=== PATIENT | female | born 1980 | race Caucasian/White ===

== ENCOUNTER 2017-05-10 23:17 | Observation (INO) | payer MEDICAID ==
[~2017-05-10] VITALS: Ht 167.6 cm; Wt 54.5 kg
[2017-05-10 23:19] VITALS: BP 128/93; PULSE 98; RESP 16; TEMP 97.8; O2SAT 96
--- NOTE | 2017-05-11 00:38 | RADRPT ---
EXAM DATE/TIME: 05/11/2017 00:16 [facility] COMPARISON: No previous studies available for comparison. INDICATIONS : Pt fell getting out of bed yesterday morning. Pain to right hip. Pt states has hip dysplagia and has for entire life. MEDICAL HISTORY : None. SURGICAL HISTORY : Appendectomy. Right hip surgery ENCOUNTER: Initial ACUITY: 2 days PAIN SCORE: 9/10 LOCATION: Right pelvis Right hip FINDINGS: Examination of the right hip was performed with AP Pelvis. No fracture or dislocation observed. Dyspl dolores of the right hip is seen with secondary osteoarthritis. No femoral head flattening or subchondra l geode formation. Pelvis is intact. A surgical clip overlies the right pelvis. Bowel gas pattern is unremarkable. CONCLUSION: Dysplastic right hip. No acute abnormality. Chandu Fleming Jr., MD on May 11, 2017 at 0:35 Board Certified Radiologist. This report was verified electronically.
--- NOTE | 2017-05-11 00:58 | PD ---
HPI Chief Complaint: Pain: Acute or Chronic Time Seen by Provider: 23:37 Travel History International Travel<30 days: No Contact w/Intl Traveler<30days: No Traveled to known affect area: No History of Present Illness HPI Patient is a 37-year-old female presenting to the emergency department for evaluation of right hip pain. Patient states the pain is chronic in nature and she is scheduled for surgery in a few weeks. Patient is having a total hip replacement, Dr. Mirza is her orthopedic surgeon. Patient is presenting today because she fell out of bed this morning, she states that this happened at 4 a.m. and she was on the floor until 11 AM. Patient went to her primary doctor today who told her to call her orthopedic surgeon which she did and he called in Tylenol 3. Patient states that she does not like to take medications home she likes taking herbal supplements and vitamins. She presents because the pain has been unbearable but states she has not taken anything to alleviate the pain even though her orthopedic surgeon called and pain medication for her per her report. PFSH Past Medical History Arthritis: Yes Diminished Hearing: No Musculoskeletal: Yes (R hip) Tetanus Vaccination: < 5 Years Influenza Vaccination: No ?: Not LMP: 05/10/17 : 2 Para: 2 Past Surgical History Appendectomy: Yes Social History Alcohol Use: No Tobacco Use: No Substance Use: No Allergies-Medications (Allergen,Severity, Reaction): Coded Allergies: No Known Allergies (Unverified , 05/10/17) Reported Meds & Prescriptions Reported Meds & Active Scripts Active No Active Prescriptions or Reported Medications Review of Systems Except as stated in HPI: all other systems reviewed are Neg Musculoskeletal: Positive: Myalgias, Arthralgias, Limited ROM, Pain Neurologic: Positive: Syncope Physical Exam Narrative GENERAL: Thin, well-developed, alert female. Resting comfortably in no acute distress. SKIN: Warm and dry. HEAD: Atraumatic. Normocephalic. EYES: Pupils equal and round. No scleral icterus. No injection or drainage. ENT: No nasal bleeding or discharge. Mucous membranes pink and moist. NECK: Trachea midline. No JVD. CARDIOVASCULAR: Regular rate and rhythm. RESPIRATORY: No accessory muscle use. Clear to auscultation. Breath sounds equal bilaterally. GASTROINTESTINAL: Abdomen soft, non-tender, nondistended. Hepatic and splenic margins not palpable. MUSCULOSKELETAL: Extremities without clubbing, cyanosis, or edema. No obvious deformities. No leg length discrepancy noted. Pain with rotation of right leg. No tenderness to palpation over right hip. No spinal tenderness or step- off noted. NEUROLOGICAL: Awake and alert. No obvious cranial nerve deficits. Motor grossly within normal limits. Five out of 5 muscle strength in the arms and legs. Normal speech. PSYCHIATRIC: Appropriate mood and affect; insight and judgment normal. Data Data Last Documented VS Vital Signs Date Time Temp Pulse Resp B/P (MAP) Pulse Ox O2 Delivery O2 Flow Rate FiO2 05/11/17 02:44 16 05/11/17 02:38 75 118/72 (87) 98 Room Air 05/10/17 23:19 97.8 Orders Orders Hip, Uni(Ap&Lat) W Ap Pelvis (05/10/17 ) Ct Brain W/O Iv Contrast(Rout) (05/11/17 ) Ct Lumb Spine W/O Contrast (05/11/17 ) Ct Hip W/O Contrast (05/11/17 ) Ct Abd/Pel W Iv Contrast(Rout) (05/11/17 ) Ed Urine Pregnancytest Poc (05/11/17 00:58) Complete Blood Count With Diff (05/11/17 00:58) Comprehensive Metabolic Panel (05/11/17 00:58) Creatine Kinase (Cpk) (05/11/17 00:58) Iv Access Insert/Monitor (05/11/17 00:58) Ketorolac Inj (Toradol Inj) (05/11/17 01:00) Morphine Inj (Morphine Inj) (05/11/17 02:30) Ondansetron Inj (Zofran Inj) (05/11/17 02:30) Iohexol 350 Inj (Omnipaque 350 Inj) (05/11/17 03:15) Admit Order (Ed Use Only) (05/11/17 05:05) Labs Laboratory Tests Test 05/11/17 01:15 White Blood Count 10.5 TH/MM3 Red Blood Count 4.49 MIL/MM3 Hemoglobin 14.1 GM/DL Hematocrit 40.6 % Mean Corpuscular Volume 90.5 FL Mean Corpuscular Hemoglobin 31.3 PG Mean Corpuscular Hemoglobin Concent 34.6 % Red Cell Distribution Width 12.6 % Platelet Count 233 TH/MM3 Mean Platelet Volume 8.3 FL Neutrophils (%) (Auto) 78.3 % Lymphocytes (%) (Auto) 16.5 % Monocytes (%) (Auto) 4.1 % Eosinophils (%) (Auto) 0.6 % Basophils (%) (Auto) 0.5 % Neutrophils # (Auto) 8.2 TH/MM3 Lymphocytes # (Auto) 1.7 TH/MM3 Monocytes # (Auto) 0.4 TH/MM3 Eosinophils # (Auto) 0.1 TH/MM3 Basophils # (Auto) 0.1 TH/MM3 CBC Comment DIFF FINAL Differential Comment Blood Urea Nitrogen 7 MG/DL Creatinine 0.69 MG/DL Random Glucose 112 MG/DL Total Protein 8.1 GM/DL Albumin 4.3 GM/DL Calcium Level 8.9 MG/DL Alkaline Phosphatase 64 U/L Aspartate Amino Transf (AST/SGOT) 12 U/L Alanine Aminotransferase (ALT/SGPT) 17 U/L Total Bilirubin 0.4 MG/DL Sodium Level 141 MEQ/L Potassium Level 3.5 MEQ/L Chloride Level 107 MEQ/L Carbon Dioxide Level 27.8 MEQ/L Anion Gap 6 MEQ/L Estimat Glomerular Filtration Rate 95 ML/MIN Total Creatine Kinase 79 U/L [facility] Medical Decision Making Medical Screen Exam Complete: Yes Emergency Medical Condition: Yes Medical Record Reviewed: Yes Interpretation(s) Last Impressions Lumbar Spine CT 05/11/17 Signed Impressions: Service Date/Time: Thursday, May 11, 2017 02:54 - CONCLUSION: Normal examination. Chandu Fleming Jr., MD Lower Extremity CT 05/11/17 Signed Impressions: Service Date/Time: Thursday, May 11, 2017 02:54 - CONCLUSION: 1. Dysplasia and secondary osteoarthritis involving the right hip. 2. No acute abnormality. Chandu Fleming Jr., MD Head CT 05/11/17 Signed Impressions: Service Date/Time: Thursday, May 11, 2017 02:51 - CONCLUSION: Normal examination. Chandu Fleming Jr., MD Abdomen/Pelvis CT 05/11/17 Signed Impressions: Service Date/Time: Thursday, May 11, 2017 02:54 - CONCLUSION: 1. No acute abnormality. 2. 1 cm nonspecific low density lesion involving the right lobe of the liver. Presumably this relates to a cyst or hemangioma. 3. Dysplasia of the right hip. 4. 2 mm nonobstructing left renal stone. Chandu Fleming Jr., MD Hip and Pelvis X-Ray 05/10/17 0000 Signed Impressions: Service Date/Time: Thursday, May 11, 2017 00:16 - CONCLUSION: Dysplastic right hip. No acute abnormality. Chandu Fleming Jr., MD Vital Signs Date Time Temp Pulse Resp B/P (MAP) Pulse Ox O2 Delivery O2 Flow Rate FiO2 05/11/17 02:44 16 05/11/17 02:38 75 16 118/72 (87) 98 Room Air 05/11/17 02:30 16 05/10/17 23:19 97.8 98 16 128/93 (105) 96 Room Air Laboratory Tests Test 05/11/17 01:15 White Blood Count 10.5 TH/MM3 Red Blood Count 4.49 MIL/MM3 Hemoglobin 14.1 GM/DL Hematocrit 40.6 % Mean Corpuscular Volume 90.5 FL Mean Corpuscular Hemoglobin 31.3 PG Mean Corpuscular Hemoglobin Concent 34.6 % Red Cell Distribution Width 12.6 % Platelet Count 233 TH/MM3 Mean Platelet Volume 8.3 FL Neutrophils (%) (Auto) 78.3 % Lymphocytes (%) (Auto) 16.5 % Monocytes (%) (Auto) 4.1 % Eosinophils (%) (Auto) 0.6 % Basophils (%) (Auto) 0.5 % Neutrophils # (Auto) 8.2 TH/MM3 Lymphocytes # (Auto) 1.7 TH/MM3 Monocytes # (Auto) 0.4 TH/MM3 Eosinophils # (Auto) 0.1 TH/MM3 Basophils # (Auto) 0.1 TH/MM3 CBC Comment DIFF FINAL Differential Comment Blood Urea Nitrogen 7 MG/DL Creatinine 0.69 MG/DL Random Glucose 112 MG/DL Total Protein 8.1 GM/DL Albumin 4.3 GM/DL Calcium Level 8.9 MG/DL Alkaline Phosphatase 64 U/L Aspartate Amino Transf (AST/SGOT) 12 U/L Alanine Aminotransferase (ALT/SGPT) 17 U/L Total Bilirubin 0.4 MG/DL Sodium Level 141 MEQ/L Potassium Level 3.5 MEQ/L Chloride Level 107 MEQ/L Carbon Dioxide Level 27.8 MEQ/L Anion Gap 6 MEQ/L Estimat Glomerular Filtration Rate 95 ML/MIN Total Creatine Kinase 79 U/L Differential Diagnosis Fracture versus sprain versus strain versus radiculopathy versus intractable pain versus other Narrative Course Patient is a 37-year-old female presented due to right hip pain secondary to a fall she sustained this morning after which she was on the ground for several hours. Patient reported going to her primary this afternoon at 1:30 and was told to follow-up with her orthopedic surgeon who she states she called and he called in Tylenol No. 3. 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 Patient presented here with pain that was different from the pain she's had in the past and is requesting to be evaluated by a new orthopedic surgeon. Imaging of the right hip is negative for acute fracture, it shows a dysplastic right hip secondary osteoarthritis. Patient was informed of these results and the presence of my attending physician who also spoke with patient. Patient then began to complain of different pain in her back, she began to question what happened to her if she left the hospital and fell again. At that time it was decided to obtain CT scans of her lumbar spine, hip, abdomen and pelvis. We also obtained a CT scan of the brain due to her report of the syncopal episode after she fell out of her bed this morning. Additionally labs were ordered to assess for rhabdomyolysis. CBC, chemistry, CK reviewed and no acute abnormalities identified. Patient was given Toradol, morphine and Zofran for pain. Imaging reports were read by the radiologist. CT of the brain shows no acute abnormality. CT of the lumbar spine shows no acute abnormality. CT of the hip shows dysplasia and secondary osteoarthritis involving the right hip. CT of the abdomen and pelvis shows no acute abnormality. There is a 1 cm nonspecific low density lesion in the right lobe of the liver, this is presumably related to his sister hemangioma. There is dysplasia of the right hip again noted. There is also a 2 mm nonobstructing left renal stone. Patient was observed by the nursing staff ambulating in the room without difficulty or obvious instability. Prior to the end of Dr. Madrigal's shift he discussed patient with Dr. Hobbs regarding admission for intractable pain. When CT reports resulted and reviewed , Dr. Hobbs was paged for admission. She was advised on findings. Patient admitted under observation. Orders place. Diagnosis Primary Impression: Intractable pain Additional Impressions: Hip dysplasia Osteoarthritis Qualified Codes: M16.31 - Unilateral osteoarthritis resulting from hip dysplasia, right hip Admitting Information Admitting Physician Requests: Observation Scripts No Active Prescriptions or Reported Meds Condition: Zaida Diaz [facility] May 11, 2017 00:58
[2017-05-11] MEDS ORDERED: KETOROLAC TROMETHAMINE 30 MG/ML (IVP) VIAL IV PUSH ONE (01:00)
[2017-05-11 01:27] LABS: AUTOMATED NEUTROPHIL # 8.2 TH/MM3 (1.8-7.7); BASOPHIL # 0.1 TH/MM3 (0-0.2); BASOPHIL % 0.5 % (0.0-2.0); EOSINOPHIL # 0.1 TH/MM3 (0-0.4); EOSINOPHIL % 0.6 % (0.0-4.0); HEMATOCRIT 40.6 % (35.0-46.0); HEMO FLAGS DIFF FINAL; LYMPH % 16.5 % (9.0-44.0); LYMPHOCYTE # 1.7 TH/MM3 (1.0-4.8); MEAN CELL VOLUME 90.5 FL (80.0-100.0); MEAN CORPUSCULAR HEMOGLOBIN 31.3 PG (27.0-34.0); MEAN CORPUSCULAR HGB CONC 34.6 % (32.0-36.0); MONO % 4.1 % (0.0-8.0); NEUT % 78.3 % (16.0-70.0); PLATELET COUNT 233 TH/MM3 (150-450); RED BLOOD COUNT 4.49 MIL/MM3 (4.00-5.30); RED CELL DISTRIBUTION WIDTH 12.6 % (11.6-17.2); WHITE BLOOD COUNT 10.5 TH/MM3 (4.0-11.0)
[2017-05-11 01:47] LABS: ANION GAP 6 MEQ/L (5-15); AST (GOT) 12 U/L (15-37); BICARBONATE 27.8 MEQ/L (21.0-32.0); BLOOD UREA NITROGEN 7 MG/DL (7-18); CHLORIDE 107 MEQ/L (98-107); GLOMERULAR FILTRATION RATE 95 ML/MIN (>89); POTASSIUM 3.5 MEQ/L (3.5-5.1); SODIUM (NA) 141 MEQ/L (136-145)
[2017-05-11 01:51] LABS: ALKALINE PHOSPHATASE 64 U/L (45-117); ALT (GPT) 17 U/L (10-53); TOTAL BILIRUBIN ADULT 0.4 MG/DL (0.2-1.0)
[2017-05-11 02:03] LABS: CREATINE KINASE 79 U/L (26-192)
[2017-05-11] MEDS ORDERED: ONDANSETRON HCL 4 MG/2 ML VIAL IV PUSH ONE (02:30)
[2017-05-11] MEDS ORDERED: MORPHINE SULFATE 4 MG/ML INJ IV PUSH ONE (02:30)
[2017-05-11 02:38] VITALS: BP 118/72; PULSE 75; RESP 16; O2SAT 98
[2017-05-11] MEDS ORDERED: IOHEXOL 350 MG/ML 10 ML VIAL (for RAD DIAG) IVCONTRAST ONE (03:15)
--- NOTE | 2017-05-11 03:21 | RADRPT ---
EXAM DATE/TIME: 05/11/2017 02:51 [facility] COMPARISON: No previous studies available for comparison. INDICATIONS : Patient fell and lost consciousness. RADIATION DOSE: 56.35 CTDIvol (mGy) MEDICAL HISTORY : None SURGICAL HISTORY : None. ENCOUNTER: Initial ACUITY: 1 day PAIN SCALE: 4/10 LOCATION: cranial TECHNIQUE: Multiple contiguous axial images were obtained of the head. Using automated exposure control and adj ustment of the mA and/or kV according to patient size, radiation dose was kept as low as reasonably a chievable to obtain optimal diagnostic quality images. DICOM format image data is available electro nically for review and comparison. FINDINGS: CEREBRUM: The ventricles are normal for age. No evidence of midline shift, mass lesion, hemorrhage or acute in farction. No extra-axial fluid collections are seen. POSTERIOR FOSSA: The cerebellum and brainstem are intact. The 4th ventricle is midline. The cerebellopontine angle i s unremarkable. EXTRACRANIAL: The visualized portion of the orbits is intact. SKULL: The calvaria is intact. No evidence of skull fracture. CONCLUSION: Normal examination. Chandu Fleming Jr., MD on May 11, 2017 at 3:19 Board Certified Radiologist. This report was verified electronically.
--- NOTE | 2017-05-11 03:25 | RADRPT ---
EXAM DATE/TIME: 05/11/2017 02:54 [facility] COMPARISON: No previous studies available for comparison. INDICATIONS : Diffuse abdominal pain post fall. IV CONTRAST: 100 cc Omnipaque 350 (iohexol) IV ORAL CONTRAST: No oral contrast ingested. RADIATION DOSE: 6.64 CTDIvol (mGy) MEDICAL HISTORY : Hip dysplasia. SURGICAL HISTORY : Appendectomy. Right hip surgery. ENCOUNTER: Initial ACUITY: 1 day PAIN SCALE: 3/10 LOCATION: All quadrants. TECHNIQUE: Volumetric scanning of the abdomen and pelvis was performed. Using automated exposure control and ad justment of the mA and/or kV according to patient size, radiation dose was kept as low as reasonably achievable to obtain optimal diagnostic quality images. DICOM format image data is available electro nically for review and comparison. FINDINGS: LOWER LUNGS: A calcified granuloma within the left lung base. LIVER: Homogeneous density. A 1 cm low-density lesion within the right lobe near the dome of the diaphragm. There is no dilation of the biliary tree. No calcified gallstones. SPLEEN: Normal size without lesion. PANCREAS: Within normal limits. KIDNEYS: Normal in size and shape. There is no mass or hydronephrosis. A 2 mm nonobstructing left renal ston e. ADRENAL GLANDS: Within normal limits. VASCULAR: There is no aortic aneurysm. BOWEL/MESENTERY: The stomach, small bowel, and colon demonstrate no acute abnormality. There is no free intraperitone al air or fluid. ABDOMINAL WALL: Within normal limits. RETROPERITONEUM: There is no lymphadenopathy. BLADDER: No wall thickening or mass. REPRODUCTIVE: Within normal limits. INGUINAL: There is no lymphadenopathy or hernia. MUSCULOSKELETAL: Dysplasia of the right hip. CONCLUSION: 1. No acute abnormality. 2. 1 cm nonspecific low density lesion involving the right lobe of the liver. Presumably this relates to a cyst or hemangioma. 3. Dysplasia of the right hip. 4. 2 mm nonobstructing left renal stone. Chandu Fleming Jr., MD on May 11, 2017 at 3:20 Board Certified Radiologist. This report was verified electronically.
--- NOTE | 2017-05-11 03:27 | RADRPT ---
EXAM DATE/TIME: 05/11/2017 02:54 [facility] COMPARISON: No previous studies available for comparison. INDICATIONS : Right hip pain post fall. RADIATION DOSE: ; Reconstructed from previous dataset, no dose MEDICAL HISTORY : Hip dysplasia. SURGICAL HISTORY : Right hip surgery. ENCOUNTER: Initial ACUITY: 1 day PAIN SCALE: 8/10 LOCATION: Right hip. TECHNIQUE: Volumetric scanning of the hip was performed. Using automated exposure control and adjustment of the mA and/or kV according to patient size, radiation dose was kept as low as reasonably achievable to o btain optimal diagnostic quality images. DICOM format image data is available electronically for rev iew and comparison. FINDINGS: There is dysplasia involving the right hip. Secondary osteoarthritic changes observed with osteophyte production. No femoral head flattening or subchondral geode formation. No fracture or dislocation. T he remaining bony structures are unremarkable. Soft tissue structures are unremarkable. No large join t effusion appreciated. CONCLUSION: 1. Dysplasia and secondary osteoarthritis involving the right hip. 2. No acute abnormality. Chandu Fleming Jr., MD on May 11, 2017 at 3:24 Board Certified Radiologist. This report was verified electronically.
--- NOTE | 2017-05-11 03:31 | RADRPT ---
EXAM DATE/TIME: 05/11/2017 02:54 [facility] COMPARISON: No previous studies available for comparison. INDICATIONS : Lower back pain post fall. Patient states she cannot feel her lower extremities. RADIATION DOSE: ; Reconstructed from previous dataset, no dose MEDICAL HISTORY : Hip dysplasia. SURGICAL HISTORY : Appendectomy. Right hip surgery. ENCOUNTER: Initial ACUITY: 1 day PAIN SCALE: 6/10 LOCATION: Lumbar spine. TECHNIQUE: Volumetric scanning of the lumbar spine was performed. Multiplanar reconstructions in the sagittal, coronal and oblique axial planes were performed. Using automated exposure control and adjustment of the mA and/or kV according to patient size, radiation dose was kept as low as reasonably achievable t o obtain optimal diagnostic quality images. DICOM format image data is available electronically for review and comparison. FINDINGS: VERTEBRAE: Normal vertebral body height. ALIGNMENT: No evidence of subluxation. T12-L1: The thecal sac has a normal diameter. No evidence of disc bulge or protrusion. The neural foramina are patent bilaterally. L1-L2: The thecal sac has a normal diameter. No evidence of disc bulge or protrusion. The neural foramina are patent bilaterally. L2-L3: The thecal sac has a normal diameter. No evidence of disc bulge or protrusion. The neural foramina are patent bilaterally. L3-L4: The thecal sac has a normal diameter. No evidence of disc bulge or protrusion. The neural foramina are patent bilaterally. L4-L5: The thecal sac has a normal diameter. No evidence of disc bulge or protrusion. The neural foramina are patent bilaterally. L5-S1: The thecal sac has a normal diameter. No evidence of disc bulge or protrusion. The neural foramina are patent bilaterally. CONCLUSION: Normal examination. Chandu Fleming Jr., MD on May 11, 2017 at 3:28 Board Certified Radiologist. This report was verified electronically.
[2017-05-11] MEDS ORDERED: NALOXONE HCL 0.4 MG/ML AMP IV PUSH PRN (05:15)
[2017-05-11] MEDS ORDERED: SODIUM CHLORIDE 0.9% FLUSH 10 ML FLUSH IV FLUSH PRN (05:15)
[2017-05-11] MEDS: MORPHINE SULFATE 4 MG/ML INJ IV PUSH PRN ×4 (06:39→17:17)
[2017-05-11 07:24] VITALS: BP 113/63; PULSE 77; RESP 18; TEMP 98.2; O2SAT 99
--- NOTE | 2017-05-11 09:26 | MB ---
cc: MELBA ROBIN DATE OF CONSULTATION 05/11/2017 CHIEF COMPLAINT Right hip pain. HISTORY OF PRESENT ILLNESS The patient is a 37-year-old white female who presents today with chronic onset of right hip pain. She states that she has been battling right hip osteoarthritis for many years now. She reports that she has been scheduled to undergo a right total hip arthroplasty in [place] with the Dr. Contreras next week. However, she states that due to insurance issues that surgery has been postponed to the end of the month. She states that she occasionally has increase in pain. She reports it caused her to fall. She states that occasionally she blacks out when she does fall. She states that she has recently had a sudden increase in pain and had a fall. She states the last time she had any type of injection was a couple of years ago. She is not taking anything for pain. She states that she called her doctor's office and they called her in Tylenol #3 which is not doing anything for her pain. She states she has had some slight numbness in her toes on the right side. Denies any tingling. Denies any noticeable weakness. Denies any other issues or shortness of breath. PAST MEDICAL HISTORY Positive for arthritis. PAST SURGICAL HISTORY Positive for appendectomy. SOCIAL HISTORY Denies alcohol, tobacco or substance abuse. ALLERGIES No known allergies. MEDICATIONS For her meds, please see MAR for a complete list. REVIEW OF SYSTEMS Negative except for what is mentioned in HPI. PHYSICAL EXAMINATION VITALS: Temperature 98.2, pulse 77, respiratory rate 18, blood pressure 113/63, O2 saturation 99 on room air. GENERAL: A well-developed, well-nourished 37-year white female who is resting comfortably. HEAD: Normocephalic, atraumatic. EARS: Hearing intact bilaterally. EYES: Extraocular motions intact. Pupils equal round react to light. NEUROLOGIC: Cranial nerves II-XII are grossly intact. NECK: Supple. No evidence of lymphadenopathy. LUNGS: No use of accessory muscles while breathing. HEART: No grade 4 murmur present at bedside. ABDOMEN: Soft and nontender. MUSCULOSKELETAL: Right hip stiffness with flexion and internal rotation of the hip. Mild pain with maximal flexion and internal rotation of the hip. She does have full movement of the knee and ankle. She has full sensation distally with full strength. Nontender to palpation in the lateral hip. Left hip full motion of the hip, knee, ankle and toes and no painful sensation distally. IMAGING STUDIES X-rays of the pelvis were reviewed at [facility] which showed no acute bony abnormality or fractures. Does show significant progression of osteoarthritis of the right hip. ASSESSMENT Osteoarthritis right hip. PLAN Discussed with the patient the treatment options. Since she is already set up to have a total hip replacement over in [place], I recommend she follow up on an outpatient basis with her doctor over there. There is no need to do it emergently. This is something that can be managed on an outpatient basis. Since she is limited with mobility due to pain, I think she may benefit from an intra-articular steroid injection of her right hip. I will consult radiology for a steroid injection. Once the injection is completed, she may be discharge home from an orthopedic standpoint. We will not be offering her any pain medications or being involved in a pain management due to her receiving care from [place]. However, if the hospitalist wishes to discharge her with a higher pain medication than Tylenol #3, that would be acceptable. The patient is cleared for discharge from the orthopedic standpoint once she receives her injection. No further orthopedic followup in this area with be necessary and she can follow up on an outpatient basis in [place] with Dr. Contreras. Orthopedics will be signing off. Thank you for this consultation. The above patient was reviewed and discussed with Dr. Robin and he agrees to the above dictation. Dictated by BRUCE Choi I personally reviewed History, past medical history, social history, review of systems, physical exam, radiographs, assessment, and plan. Plan on patient returning to see her surgeon in [place] for surgical intervention. A mid-level provider in my office (nurse practitioner or physician seed analysis laboratory assistant) may see this patient on follow-up visits and continue to implement the objectives of this plan including: Starting or adjusting medications, injections, cast application , orthotics, brace application, physical therapy, radiological studies ( including x-ray, MRI, CT, ultrasound, bone scan), vascular studies, neurologic studies, specialist consultation, and proceeding with surgical management, as appropriate. MD MICHELE Huang/NUZHAT /7:57 AM /9:17 AM [facility]
[2017-05-11] MEDS: SODIUM CHLORIDE 0.9% FLUSH 10 ML FLUSH IV FLUSH SCH ×2 (09:47→20:47)
--- NOTE | 2017-05-11 11:50 | HHI.HP ---
[facility] No Primary Care Physician Admission Diagnosis INTRACTABLE PAIN Diagnoses: Chief Complaint: right hip pain, fall Travel History International Travel<30 Days: No Contact w/Intl Traveler <30 Da: No Traveled to Known Affected Are: No History of Present Illness Written by Coco Saha, acting as scribe for Dr. Euceda on 05/11/17 at 11: 50. 37-year-old female with history of hip dysplasia since childhood presents with intractable right hip pain and fall. The patient reports her entire life she has battled right hip pain secondary to the dysplasia. She has undergone every alternative therapy including PT and pain management. The pain has been worsening recently over the past year since she had her baby. She locates the pain to the right lateral hip and anterior groin with radiation down to the foot. Any activity exacerbates the pain. Her PCP called in Tylenol #3 for pain but she has had no relief with this medication. She also reports distal numbness of the right 3rd, 4th, 5th toes. She has weakness throughout the entire right leg. She fell yesterday at 4am after her right hip just popped out , lost her balance, and fell to the floor. She believes she hit her head and passed out for a couple hours. She has urinary incontinence at baseline for many years. The patient is very frustrated with her symptoms; she states she used to be able to tell when her hip is going to slip out, but now it happens spontaneously without any warning and she just falls to the floor. Denies any recent fevers/chills, chest pain, shortness of breath, cough, diarrhea, constipation, or abdominal complaints. Recently she has been seeing an orthopedic surgeon Dr. Contreras in [place], [place]. She is scheduled for a hip replacement in the next few weeks. She has no other medical complaints at this time. Review of Systems Except as stated in HPI: all other systems reviewed are Neg Past Family Social History Past Medical History Right hip dysplasia Past Surgical History Right hip surgery as a child Appendectomy Reported Medications Tylenol #3 prn Allergies: Coded Allergies: No Known Allergies (Unverified , 05/10/17) Active Ordered Medications Current Medications Medications (Trade) Dose Ordered Sig/Elvia Route Start Time Stop Time Status Last Admin (NS Flush) 2 ml UNSCH PRN IV FLUSH 05/11/17 05:15 (NS Flush) 2 ml BID IV FLUSH 05/11/17 09:00 05/11/17 09:47 (Narcan Inj) 0.4 mg UNSCH PRN IV PUSH 05/11/17 05:15 (Morphine Inj) 2 mg Q3H PRN IV PUSH 05/11/17 05:15 05/11/17 09:47 (Percocet 5-325 Mg) 1 tab Q4H PRN PO 05/11/17 12:30 (Tylenol) 650 mg Q4H PRN PO 05/11/17 12:30 Family History Father killed in an accident Does not know her mother well One brother lives [place] of the country, unknown medical history Social History Denies any tobacco, alcohol, or illicit drug use. Has a PhD in forensics however currently unemployed Physical Exam Vital Signs Vital Signs Date Time Temp Pulse Resp B/P (MAP) Pulse Ox O2 Delivery O2 Flow Rate FiO2 05/11/17 10:22 17 05/11/17 07:24 98.2 77 18 113/63 (80) 99 05/11/17 06:18 05/11/17 02:44 16 05/11/17 02:38 75 16 118/72 (87) 98 Room Air 05/11/17 02:30 16 05/10/17 23:19 97.8 98 16 128/93 (105) 96 Room Air Physical Exam GENERAL: Well-nourished, well-developed middle aged female patient in [facility]. SKIN: Warm and dry. No rash. HEAD: Normocephalic. Atraumatic. EYES: Pupils equal and round. No scleral icterus. No injection or drainage. ENT: No nasal bleeding or discharge. Mucous membranes pink and moist. NECK: Supple. Trachea midline. CARDIOVASCULAR: Regular rate and rhythm. S1, S2 noted. No murmur appreciated. RESPIRATORY: No accessory muscle use. Clear to auscultation. Breath sounds equal bilaterally. GASTROINTESTINAL: Abdomen soft, non-tender, nondistended. Normoactive bowel sounds x4. MUSCULOSKELETAL: No obvious deformities. Extremities without clubbing, cyanosis , or edema. Bilateral patellar DTRs 2+. NEUROLOGICAL: Awake and alert. No obvious cranial nerve deficits. Motor grossly within normal limits. 3/5 strength RLE, 5/5 strength LUE/RUE/LLE. Right 3rd, 4th, 5th, toes with sensation to light touch and pain. Normal speech. PSYCHIATRIC: Appropriate mood and affect; insight and judgment normal. Laboratory Laboratory Tests Test 05/11/17 01:15 White Blood Count 10.5 Red Blood Count 4.49 Hemoglobin 14.1 Hematocrit 40.6 Mean Corpuscular Volume 90.5 Mean Corpuscular Hemoglobin 31.3 Mean Corpuscular Hemoglobin Concent 34.6 Red Cell Distribution Width 12.6 Platelet Count 233 Mean Platelet Volume 8.3 Neutrophils (%) (Auto) 78.3 Lymphocytes (%) (Auto) 16.5 Monocytes (%) (Auto) 4.1 Eosinophils (%) (Auto) 0.6 Basophils (%) (Auto) 0.5 Neutrophils # (Auto) 8.2 Lymphocytes # (Auto) 1.7 Monocytes # (Auto) 0.4 Eosinophils # (Auto) 0.1 Basophils # (Auto) 0.1 CBC Comment DIFF FINAL Differential Comment Blood Urea Nitrogen 7 Creatinine 0.69 Random Glucose 112 Total Protein 8.1 Albumin 4.3 Calcium Level 8.9 Alkaline Phosphatase 64 Aspartate Amino Transf (AST/SGOT) 12 Alanine Aminotransferase (ALT/SGPT) 17 Total Bilirubin 0.4 Sodium Level 141 Potassium Level 3.5 Chloride Level 107 Carbon Dioxide Level 27.8 Anion Gap 6 Estimat Glomerular Filtration Rate 95 Total Creatine Kinase 79 Result Diagram: 05/11/1711405/11/17114 Imaging Last Impressions Lumbar Spine CT 05/11/17 Signed Impressions: Service Date/Time: Thursday, May 11, 2017 02:54 - CONCLUSION: Normal examination. Chandu Fleming Jr., MD Lower Extremity CT 05/11/17 Signed Impressions: Service Date/Time: Thursday, May 11, 2017 02:54 - CONCLUSION: 1. Dysplasia and secondary osteoarthritis involving the right hip. 2. No acute abnormality. Chandu Fleming Jr., MD Head CT 05/11/17 Signed Impressions: Service Date/Time: Thursday, May 11, 2017 02:51 - CONCLUSION: Normal examination. Chandu Fleming Jr., MD Abdomen/Pelvis CT 10/6/17 0000 Signed Impressions: Service Date/Time: Thursday, May 11, 2017 02:54 - CONCLUSION: 1. No acute abnormality. 2. 1 cm nonspecific low density lesion involving the right lobe of the liver. Presumably this relates to a cyst or hemangioma. 3. Dysplasia of the right hip. 4. 2 mm nonobstructing left renal stone. Chandu Fleming Jr., MD Hip and Pelvis X-Ray 05/10/17 0000 Signed Impressions: Service Date/Time: Thursday, May 11, 2017 00:16 - CONCLUSION: Dysplastic right hip. No acute abnormality. Chandu Fleming Jr., MD Caprini VTE Risk Assessment Caprini VTE Risk Assessment: Mod/High Risk (score >= 2) Caprini Risk Assessment Model Point Value = 1 Point Value = 2 Point Value = 3 Point Value = 5 Age 41-60 Minor surgery BMI > 25 kg/m2 Swollen legs Varicose veins or History of unexplained or recurrent spontaneous Oral contraceptives or hormone replacement Sepsis (< 1 month) Serious lung disease, including pneumonia (< 1 month) Abnormal pulmonary function Acute myocardial infarction Congestive heart failure (< 1 month) History of inflammatory bowel disease Medical patient at bed rest Age 61-74 Arthroscopic surgery Major open surgery (> 45 min) Laparoscopic surgery (> 45 min) Malignancy Confined to bed (> 72 hours) Immobilizing plaster cast Central venous access Age >= 75 History of VTE Family history of VTE Factor V Leiden Prothrombin [id number] Lupus anticoagulant Anticardiolipin antibodies Elevated serum homocysteine Heparin-induced thrombocytopenia Other congenital or acquired thrombophilia Stroke (< 1 month) Elective arthroplasty Hip, pelvis, or leg fracture Acute spinal cord injury (< 1 month) Prophylaxis Regimen Total Risk Factor Score Risk Level Prophylaxis Regimen 0-1 Low Early ambulation 2 Moderate Order ONE of the following: *Sequential Compression Device (SCD) *Heparin 5000 units SQ BID 3-4 Higher Order ONE of the following medications: *Heparin 5000 units SQ TID *Enoxaparin/Lovenox 40 mg SQ daily (WT < 150 kg, CrCl > 30 mL/min) *Enoxaparin/Lovenox 30 mg SQ daily (WT < 150 kg, CrCl > 10-29 mL/min) *Enoxaparin/Lovenox 30 mg SQ BID (WT < 150 kg, CrCl > 30 mL/min) AND/OR *Sequential Compression Device (SCD) 5 or more Highest Order ONE of the following medications: *Heparin 5000 units SQ TID (Preferred with Epidurals) *Enoxaparin/Lovenox 40 mg SQ daily (WT < 150 kg, CrCl > 30 mL/min) *Enoxaparin/Lovenox 30 mg SQ daily (WT < 150 kg, CrCl > 10-29 mL/min) *Enoxaparin/Lovenox 30 mg SQ BID (WT < 150 kg, CrCl > 30 mL/min) AND *Sequential Compression Device (SCD) Assessment and Plan Problem List: (1) Hip dysplasia ICD Code: Q65.89 - Other specified congenital deformities of hip Status: Acute (2) Osteoarthritis ICD Code: M19.90 - Unspecified osteoarthritis, unspecified site Status: Acute (3) Intractable pain ICD Code: R52 - Pain, unspecified Status: Acute Assessment and Plan 37-year-old female with history of hip dysplasia since childhood presents with intractable right hip pain and fall. Right Hip Dysplasia/Osteoarthritis with Intractable R Hip Pain: failed outpatient treatment, pain unrelieved by Tylenol #3. -Right hip xray images reviewed, shows dysplastic right hip; no acute abnormality -Right hip CT images reviewed, shows dysplasia and secondary osteoarthritis involving the R hip; no acute abnormality -Orthopedics consulted, ordered right hip steroid injection with IR, and cleared for d/c to f/up as outpatient with her orthopedic surgeon Dr. Contreras in [place], [place] -pain control with percocet prn and IV morphine prn breakthrough pain -consult PT Fall/Syncope: suspect secondary to severe right hip pain; reportedly hit head on the way down -Head CT and lumbar spine CT images reviewed, no acute findings -control pain as above -check orthostatics -monitor on telemetry DVT Prophylaxis: teds/SCDs Discussed Condition With Patient, RN Attending Statement This note was transcribed by fiona Saha. I, Dr. Damian Euceda personally performed the history, physical exam, and medical decision making; and confirmed the accuracy of the information in the transcribed note. Authenticated by Dr. Damian Euceda on 05/11/17 at 22:40. Problem Qualifiers (1) Osteoarthritis: Qualified Codes: M16.31 - Unilateral osteoarthritis resulting from hip dysplasia, right hip Coco Saha PA-C May 11, 2017 11:50 Damian Euceda MD May 11, 2017 22:40
[2017-05-11] MEDS ORDERED: ACETAMINOPHEN 325 MG TAB PO PRN (12:30)
[2017-05-11 12:33] VITALS: BP 129/80; PULSE 86; RESP 22; TEMP 98.2; O2SAT 98
[2017-05-11 15:25] VITALS: BP 123/90; PULSE 87; RESP 16; TEMP 98; O2SAT 97
[2017-05-11] MEDS ORDERED: TRIAMCINOLONE ACETONIDE 40 MG/ML VIAL ONE (16:13)
[2017-05-11] MEDS ORDERED: ROPIVACAINE 1% PF INJ 20 ML AMP ONE (16:13)
--- NOTE | 2017-05-11 17:26 | RADRPT ---
EXAM DATE/TIME: 05/11/2017 16:23 [facility] COMPARISON: No previous studies available for comparison. INDICATIONS : Patient with a history of chronic hip pain. MEDICAL HISTORY : Arthritis SURGICAL HISTORY : Appendectomy ENCOUNTER: Initial ACUITY: 4 - 6 days PAIN SCORE: 9/10 LOCATION: Right hip FLUORO TIME: 0.8 minutes IMAGE SERIES: 1 CONTRAST: 1cc Omnipaque (iohexol) 350 DEVICE: 22 gauge needle was placed into the right hip joint MEDICATIONS: 1.) 1 cc triamcinolone (Kenalog) 2.) 4 cc ropivacaine (Naropin) RESPONSE: Pre procedure pain level was 9/10. Post procedure pain level was 7/10. PROCEDURE : The risks, benefits and alternatives to the procedure were explained and verbal and written consent w as obtained. The site was prepped in sterile fashion. Full sterile technique was used, including ca p, mask, sterile gloves and gown and a large sterile sheet. Hand hygiene and 2% chlorhexidine and/or betadine/alcohol prep was utilized per protocol for cutaneous antisepsis. The skin and subcutaneous tissues were infiltrated with local anesthetic solution. Under sterile conditions and using aseptic technique with fluoroscopic guidance the joint was punctur ed and positive contrast was injected to confirm intra-articular position. Following this, the presc ribed mixture of Kenalog and local anesthetics was injected. The patient tolerated the procedure wel l and there were no complications. CONCLUSION: Uncomplicated therapeutic injection performed under fluoroscopic guidance. Emery Goff MD on May 11, 2017 at 17:25 Board Certified Radiologist. This report was verified electronically.
[2017-05-11 20:26] VITALS: PULSE 78
[2017-05-11] MEDS: oxyCODONE/ACETAMINOPHEN 5 MG/325 MG TAB PO PRN ×2 (20:49→21:56)
[2017-05-11 23:06] VITALS: BP 128/78; PULSE 77; RESP 18; TEMP 98; O2SAT 98
[2017-05-12 00:04] VITALS: PULSE 78
[2017-05-12] MEDS: MORPHINE SULFATE 4 MG/ML INJ IV PUSH PRN (00:59)
[2017-05-12 03:33] VITALS: BP 110/74; PULSE 83; RESP 18; TEMP 98.1; O2SAT 100
[2017-05-12] MEDS: oxyCODONE/ACETAMINOPHEN 5 MG/325 MG TAB PO PRN ×2 (04:30→09:49)
[2017-05-12 07:28] VITALS: BP 108/68; PULSE 69; RESP 18; TEMP 98.2; O2SAT 98
--- NOTE | 2017-05-12 09:39 | HHI.DCPOC ---
Discharge Care Plan Diagnosis: (1) Intractable pain (2) Hip dysplasia (3) Osteoarthritis Your Health Problems Are: Chronic Pain Goals to Promote Your Health * To prevent worsening of your condition and complications * To maintain your health at the optimal level Directions to Meet Your Goals Take your medications as prescribed Follow your dietary instruction Follow activity as directed Keep your appointments as scheduled Take your immunizations and boosters as scheduled If your symptoms worsen call your PCP, if no PCP go to Urgent Care Center or Emergency Room Smoking is Dangerous to Your Health. Avoid second hand smoke Call the 24-hour hour crisis hotline for domestic abuse at Martha Davies May 12, 2017 09:39
[2017-05-12] MEDS ORDERED: OXYC1TAB63 PO (09:40)
--- NOTE | 2017-05-12 09:40 | HHI.FF ---
Face to Face Verification Diagnosis: (1) Hip dysplasia (2) Osteoarthritis (3) Intractable pain Physical Therapy Order: Evaluate and Treat, Improve ambulation, Strength and gait training I have seen patient Shea Moser on 05/12/17. My clinical findings support the need for the requested home health care services because: High risk of falls I certify that my clinical findings support that this patient is homebound because: Unsteady gait/balance Martha Davies May 12, 2017 09:40
[2017-05-12] MEDS ORDERED: KETO10 PO (09:45)
[2017-05-12] MEDS: SODIUM CHLORIDE 0.9% FLUSH 10 ML FLUSH IV FLUSH SCH (09:49)
--- NOTE | 2017-05-12 09:51 | HHI.PR ---
Subjective Remarks Follow up right hip dysplasia/osteoarthritis with intractable hip pain. Patient seen and examined today. Lying in bed asleep, awakens to voice. States that she slept well last evening, the "best she has is a long time". States that the Toradol helped. Patient has been out of bed ambulating. PT has seen patient with recommendations for outpatient PT. Tolerating PO intake, denies any nausea , vomiting or diarrhea. Denies any recent fever, chills, cough, shortness of breath. Objective Vitals Vital Signs Date Time Temp Pulse Resp B/P (MAP) Pulse Ox O2 Delivery O2 Flow Rate FiO2 05/12/17 07:28 98.2 69 18 108/68 (81) 98 05/12/17 03:33 98.1 83 18 110/74 (86) 100 05/12/17 00:04 78 05/11/17 23:06 98.0 77 18 128/78 (95) 98 05/11/17 20:26 78 05/11/17 18:00 16 05/11/17 15:25 98.0 87 16 123/90 (101) 97 05/11/17 12:33 98.2 86 22 129/80 (96) 98 Result Diagram: 05/11/175 05/11/175 Imaging Last Impressions Therapeutic Injection 05/11/17 Signed Impressions: Service Date/Time: Thursday, May 11, 2017 16:23 - CONCLUSION: Uncomplicated therapeutic injection performed under fluoroscopic guidance. Emery Goff MD Lumbar Spine CT 05/11/17 Signed Impressions: Service Date/Time: Thursday, May 11, 2017 02:54 - CONCLUSION: Normal examination. Chandu Fleming Jr., MD Lower Extremity CT 05/11/17 Signed Impressions: Service Date/Time: Thursday, May 11, 2017 02:54 - CONCLUSION: 1. Dysplasia and secondary osteoarthritis involving the right hip. 2. No acute abnormality. Chandu Fleming Jr., MD Head CT 05/11/17 Signed Impressions: Service Date/Time: Thursday, May 11, 2017 02:51 - CONCLUSION: Normal examination. Chandu Fleming Jr., MD Abdomen/Pelvis CT 05/11/17 Signed Impressions: Service Date/Time: Thursday, May 11, 2017 02:54 - CONCLUSION: 1. No acute abnormality. 2. 1 cm nonspecific low density lesion involving the right lobe of the liver. Presumably this relates to a cyst or hemangioma. 3. Dysplasia of the right hip. 4. 2 mm nonobstructing left renal stone. Chandu Fleming Jr., MD Hip and Pelvis X-Ray 05/10/17 0000 Signed Impressions: Service Date/Time: Thursday, May 11, 2017 00:16 - CONCLUSION: Dysplastic right hip. No acute abnormality. Chandu Fleming Jr., MD Objective Remarks GENERAL: Well-nourished, well-developed middle aged female patient in [place], lying in bed comfortably. SKIN: Warm and dry. No rash. HEENT: Normocephalic. Atraumatic. Pupils equal and round. No scleral icterus. No injection or drainage. No nasal bleeding or discharge. Mucous membranes pink and moist. NECK: Supple. Trachea midline. CARDIOVASCULAR: Regular rate and rhythm. S1, S2 noted. No murmur appreciated. RESPIRATORY: No accessory muscle use. Clear to auscultation. Breath sounds equal bilaterally. GASTROINTESTINAL: Abdomen soft, non-tender, nondistended. Normoactive bowel sounds x4. MUSCULOSKELETAL: No obvious deformities. Extremities without clubbing, cyanosis , or edema. Bilateral patellar DTRs 2+. NEUROLOGICAL: Awake and alert. No obvious cranial nerve deficits. Motor grossly within normal limits. 4/5 strength RLE, 5/5 strength LUE/RUE/LLE. Right 3rd, 4th, 5th, toes with sensation to light touch and pain. Normal speech. PSYCHIATRIC: Appropriate mood and affect; insight and judgment normal. A/P Problem List: (1) Hip dysplasia ICD Code: Q65.89 - Other specified congenital deformities of hip Status: Acute (2) Osteoarthritis ICD Code: M19.90 - Unspecified osteoarthritis, unspecified site Status: Acute (3) Intractable pain ICD Code: R52 - Pain, unspecified Status: Acute Assessment and Plan 37-year-old female with history of hip dysplasia since childhood presents with intractable right hip pain and fall. Right Hip Dysplasia/Osteoarthritis with Intractable R Hip Pain: failed outpatient treatment, pain unrelieved by Tylenol #3. - Right hip xray images were reviewed, showing dysplastic right hip; no acute abnormality - Right hip CT images reviewed, shows dysplasia and secondary osteoarthritis involving the R hip; no acute abnormality - Orthopedics gave right hip steroid injection with IR, and cleared for d/c to f/up as outpatient with her orthopedic surgeon Dr. Contreras in [place], [place] - Patient seen by PT. Recommendations for outpatient PT. Prescription ordered for outpatient therapy and patient educated on importance. She is agreeable to the plan. - Patient expresses improvement of pain with use of Toradol. Will discharge today with Toradol prescription as well as Percocet. Fall/Syncope: suspect secondary to severe right hip pain; reportedly hit head on the way down - Head CT and lumbar spine CT images were reviewed, no acute findings - Orthostatics normal. DVT Prophylaxis: teds/SCDs Problem Qualifiers (1) Osteoarthritis: Qualified Codes: M16.31 - Unilateral osteoarthritis resulting from hip dysplasia, right hip Martha Davies May 12, 2017 09:51
== END 2017-05-12 11:51 | disposition home or self-care (01) ==
LOC: NEPD 23:17 → NEDA 05-11 05:07 → NEPFCDU 05-11 06:27
PROVIDERS: ADMIT Hospitalist; ATTEND Hospitalist
DX: M16.31 Unilateral osteoarthritis resulting from hip dysplasia, right hip (principal); W06.XXXA Fall from bed, initial encounter; Y92.013 Bedroom of single-family (private) house as the place of occurrence of the external cause
CPT/HCPCS: 20610; 70450; 72131; 73502; 73700; 74177; 77002; 80053; 82550; 84703; 85025; 96374; 96375; 96376; 97162; 99285; G0378; G8987; G8988; J1885; J2270; J2405; J2795; J3301; Q9967